=== PATIENT | female | born 2005 | race Hispanic/Latino ===

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

== ENCOUNTER 2025-03-26 05:35 | Inpatient (IN) | payer BC, MEDICAID ==
[2025-03-23 11:15] LABS: Hematocrit 37.0 % (34.9-44.5); Hemoglobin 12.5 g/dL (12.0-15.5); Platelet Count 184 10x3/uL (150-450)
[2025-03-23 12:24] LABS: Syphilis Antibody Index 0.05 S/CO (<1.00 Non-Reactive)
[2025-03-23 12:26] LABS: Hep B Surf Ag Non-Reactive S/CO (NonReactive)
[2025-03-26 06:07] VITALS: BMI 39.6
[2025-03-26] MEDS ORDERED: Ondansetron PF 4 MG/2 ML Vial ONE (07:06)
[2025-03-26] MEDS ORDERED: Methylergonovine 0.2 MG/ML VIAL IM PRN (07:56)
[2025-03-26] MEDS ORDERED: Diphenoxylate HCl/Atropine Tablet PO PRN ×2 (07:56)
[2025-03-26] MEDS ORDERED: Bicitra 30 ML UDCUP PO PRN (07:56)
[2025-03-26] MEDS ORDERED: Tranexamic Acid 1,000 MG/10 ML VIAL IVP PRN (07:56)
[2025-03-26] MEDS ORDERED: Famotidine/PF 20 mg/2ml Vial SLOW IVP PRN (07:56)
[2025-03-26] MEDS ORDERED: Acetaminophen 500 MG TAB PO PRN (07:56)
[2025-03-26] MEDS ORDERED: Ondansetron PF 4 MG/2 ML Vial IVP PRN ×4 (07:56→11:26)
[2025-03-26] MEDS ORDERED: hydrALAZINE 20 MG/ML VIAL SLOW IVP PRN ×2 (07:56→11:26)
[2025-03-26] MEDS ORDERED: Carboprost 250 MCG/ML AMP IM PRN (07:56)
[2025-03-26] MEDS ORDERED: Oxytocin 30 units/NS 500 ML 500 ML IV SCH (08:00)
[2025-03-26] MEDS ORDERED: Meperidine HCl/PF 25 MG (1 mL) VIAL SLOW IVP PRN (08:59)
[2025-03-26] MEDS ORDERED: diphenhydrAMINE 50 MG/ML VIAL IVP PRN (08:59)
[2025-03-26] MEDS ORDERED: Ketorolac Tromethamine 30 MG (1 mL) VIAL IVP PRN (08:59)
[2025-03-26] MEDS ORDERED: Communication Order-Pharmacy FS SCH (09:00)
[2025-03-26] MEDS ORDERED: diphenhydrAMINE 25 MG CAP PO PRN (11:26)
[2025-03-26] MEDS ORDERED: Lanolin Ointment 7 GM TUBE TOP PRN (11:26)
[2025-03-26] MEDS ORDERED: Bisacodyl 10 MG SUPP PR PRN (11:26)
[2025-03-26] MEDS: Oxytocin 10 UNITS/ML VIAL ONE ×2 (11:40→11:41)
[2025-03-26] MEDS: CEFAZOLIN 2 GM VIAL ONE (11:40)
[2025-03-26] MEDS: PHENYLEPHRINE-NS 100 MCG/ML 10 ML SYRINGE ONE (11:40)
[2025-03-26] MEDS: Ketorolac Tromethamine 30 MG (1 mL) VIAL ONE (11:41)
[2025-03-26] MEDS ORDERED: Meperidine HCl/PF 25 MG (1 mL) VIAL IM PRN (21:01)
[2025-03-27] MEDS: HYDROcodone/Acetaminophen 5/325 mg Tablet PO PRN (00:42)
[2025-03-27] MEDS: Ibuprofen 800 MG TAB PO SCH (02:46)
[2025-03-27 03:47] LABS: Hematocrit 34.4 % (34.9-44.5); Hemoglobin 11.2 g/dL (12.0-15.5); Mean Corpuscular Hemoglobin 26.9 pg (27.0-33.0); Mean Corpuscular Volume 82.5 fL (81.6-98.3); Platelet Count 157 10x3/uL (150-450); Red Blood Cell (RBC) Count 4.17 10x6/uL (3.90-5.03); White Blood Cell (WBC) Count 7.06 10x3/uL (3.5-10.5)
[2025-03-27] MEDS: Ferrous Sulfate 325 MG TAB PO SCH (04:24)
[2025-03-27] MEDS ORDERED: Glucagon 1 MG/ML KIT IM PRN (21:39)
[2025-03-27] MEDS ORDERED: Dextrose 50% Abboject 50 ML SYRINGE SLOW IVP PRN (21:39)
[2025-03-27] MEDS: Lantus 1000 UNITS/10 ML VIAL SC SCH (22:52)
[2025-03-28] MEDS: metFORMIN 500 MG TAB PO SCH (08:51)
[2025-03-29 09:35] VITALS: BP 125/67; TEMP 98.1
== END 2025-03-29 12:45 | disposition home or self-care (01) | DRG 788 ==
LOC: CSHLD 05:35 → CSHPP 11:25
PROVIDERS: ADMIT Family Medicine; ATTEND Family Medicine
PROC: 10D00Z1 Extraction of Products of Conception, Low, Open Approach (ICD-10-PCS; principal; 2025-03-26)
DX: O99.214 Obesity complicating childbirth (principal); Z3A.37 37 weeks gestation of pregnancy; Z37.0 Single live birth; O24.32 Unspecified pre-existing diabetes mellitus in childbirth; Z79.82 Long term (current) use of aspirin; Z79.899 Other long term (current) drug therapy
CPT/HCPCS: 36415; 36416; 51702; 85014; 85018; 85027; 85049; 86780; 86850; 86900; 86901; 87340; C1889; J1815; J1885; J2274; J2405; J2590; J7120